=== PATIENT | female | born 1950 | race Hispanic/Latino ===

== ENCOUNTER 2017-11-22 09:19 | Outpatient (CLI) | payer MEDICARE ==
--- NOTE | 2017-11-22 14:55 | XRay Report ---
RIGHT WRIST THREE VIEWS: 11/22/17 CLINICAL: Right wrist pain. FINDINGS: Mild diffuse osteopenia. No fracture or dislocation. 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 The carpal bones are intact. Mild radiocarpal joint arthritis. The distal radius and ulna are normal. IMPRESSION: Osteoarthritis.
--- NOTE | 2017-11-22 15:09 | XRay Report ---
RIGHT FOREARM TWO VIEWS : 11/22/17 CLINICAL: Right wrist pain. FINDINGS: Normal bones, joints and soft tissues. No fracture or dislocation. The carpal bones are grossly intact. IMPRESSION: Normal.
== END 2017-11-22 09:20 | disposition home or self-care (01) ==
LOC: SPVIMAG 09:19
PROVIDERS: ATTEND Internal Medicine
DX: M19.031 Primary osteoarthritis, right wrist (principal); M18.9 Osteoarthritis of first carpometacarpal joint, unspecified; M85.88 Other specified disorders of bone density and structure, other site